=== PATIENT | male | born 1940 | race Caucasian/White ===

== ENCOUNTER 2022-02-21 15:48 | Inpatient (IN) | payer MEDICARE, OTHER ==
[~2022-02-21] VITALS: Ht 170.2 cm; Wt 67.1 kg
--- NOTE | 2022-02-21 16:00 | NUR ---
RECIEved pt 81 years male from from home by tereso awake and alert c/o abdominal pain and black stool diarrhea for 7 days
[2022-02-21] MEDS ORDERED: SERT25TA5 PO (16:14)
[2022-02-21] MEDS ORDERED: ESOM40CA52 PO (16:14)
[2022-02-21] MEDS ORDERED: TAMS-12 PO (16:14)
[2022-02-21] MEDS ORDERED: CELE-85 PO (16:14)
[2022-02-21] MEDS ORDERED: ATOR40TA PO (16:14)
[2022-02-21] MEDS ORDERED: CLOP75TA15 PO (16:14)
[2022-02-21] MEDS ORDERED: EZET10TA15 PO (16:14)
[2022-02-21] MEDS ORDERED: METF-440 PO (16:14)
[2022-02-21] MEDS ORDERED: GABA300C PO (16:14)
[2022-02-21] MEDS ORDERED: FERR324T PO (16:14)
[2022-02-21] MEDS ORDERED: OMEP40CA21 PO (16:14)
[2022-02-21] MEDS ORDERED: TICA90TA PO (16:14)
[2022-02-21] MEDS ORDERED: LISI40TA13 PO (16:14)
[2022-02-21] MEDS ORDERED: PANTOPRAZOLE 40 MG VIAL IV ONE (16:30)
[2022-02-21] MEDS ORDERED: IV NS 0.9% 1,000 ML BAG IV ONE (16:30)
--- NOTE | 2022-02-21 16:30 | NUR ---
BLOOD DROW BY LAB TACH IVF INFUSED AND PATENT SEEN BY DR. PERKINS
[2022-02-21 16:35] LABS: BASOPHILS % (AUTO) 0.5 % (0.0-2.0); EOSINOPHILS % (AUTO) 2.3 % (0.0-6.0); HEMATOCRIT 39 % (39-51); HEMOGLOBIN 12.8 g/dL (13.5-17.5); LYMPHOCYTES # (AUTO) 2.3 K/uL (0.8-4.8); LYMPHOCYTES % (AUTO) 30.9 % (20.0-44.0); MEAN CORPUSCULAR HGB CONC 33 g/dl (31.0-36.0); MEAN CORPUSCULAR VOLUME 91 fL (80-96); MONOCYTES # (AUTO) 0.6 K/uL (0.1-1.30); MONOCYTES % (AUTO) 7.6 % (2.0-12.0); NEUTROPHILS # (AUTO) 4.3 K/uL (1.8-8.9); NEUTROPHILS % (AUTO) 58.7 % (43.0-81.0); PLATELET COUNT (AUTO) 201 K/uL (150-450); RED BLOOD CELL COUNT(AUTO) 4.32 MIL/uL (4.5-6.0); WHITE BLOOD COUNT (AUTO) 7.3 K/uL (4.3-11.0)
[2022-02-21] MEDS ORDERED: PANTOPRAZOLE 40 MG VIAL ONE (16:38)
[2022-02-21 16:46] LABS: OCCULT BLOOD STOOL NEGATIVE (NEGATIVE)
[2022-02-21 16:51] LABS: ALANINE AMINOTRANSFERASE 11 U/L (12-78); ALBUMIN 3.2 g/dL (3.4-5.0); ALKALINE PHOSPHATASE 65 U/L (46-116); ASPARTATE AMINOTRANSFERASE 9 U/L (15-37); BILIRUBIN,DIRECT 0.1 mg/dL (0.0-0.2); BILIRUBIN,TOTAL 0.2 mg/dL (0.2-1.0); CALCIUM, SERUM 8.8 mg/dL (8.5-10.1); CARBON DIOXIDE 26 mmol/L (21-32); CHLORIDE 109 mmol/L (98-107); CREATININE 1.3 mg/dL (0.6-1.3); GLUCOSE 97 mg/dL (74-106); LIPASE 77 U/L (73-393); POTASSIUM 4.3 mmol/L (3.5-5.1); SODIUM SERUM 142 mmol/L (136-145); TOTAL PROTEIN, SERUM 6.5 g/dL (6.4-8.2); UREA NITROGEN, BLOOD 15 mg/dL (7-18)
--- NOTE | 2022-02-21 17:16 | NUR ---
ABDOMIN SOFT NONE TENDER TO TOCH
[2022-02-21] MEDS ORDERED: TICAGRELOR 90 MG TABLET PO SCH (17:30)
[2022-02-21] MEDS: TAMSULOSIN 0.4 MG CAP.SR.24H PO SCH (17:30)
[2022-02-21] MEDS ORDERED: MECL-159 PO (17:46)
--- NOTE | 2022-02-21 18:00 | NUR ---
DANGELO CALDERA SEND TO LAB
--- NOTE | 2022-02-21 18:33 | NUR ---
[facility] CALLED ENGINE HEAD REPAIRER PAGED.
--- NOTE | 2022-02-21 18:45 | NUR ---
ECCHOCARDIO GRAM DONE AT BED SIDE
[2022-02-21] MEDS ORDERED: ACETAMINOPHEN 325 MG TABLET PO PRN (19:00)
[2022-02-21] MEDS ORDERED: ONDANSETRON HCL/PF 4 MG/2 ML VIAL IVP PRN (19:00)
[2022-02-21] MEDS ORDERED: MAG HYDROX/AL HYDROX/SIMETH 30 ML UDC PO PRN (19:00)
[2022-02-21] MEDS ORDERED: DEXTROSE 50%-WATER 50 ML DISP.SYRIN IV PRN (19:00)
[2022-02-21] MEDS ORDERED: *INSULIN REGULAR(HUMULIN R)HUM 100 UNIT/ML VIAL SQ PRN (19:00)
[2022-02-21] MEDS ORDERED: MAGNESIUM HYDROXIDE 30 ML UDC PO PRN (19:00)
[2022-02-21] MEDS ORDERED: Z GUARD REMEDY 4 OZ OINT TP PRN (19:00)
[2022-02-21] MEDS ORDERED: INSULIN REGULAR, HUMAN 100 UNIT/ML 3 ML VIAL SQ PRN (19:00)
--- NOTE | 2022-02-21 19:47 | NUR ---
HAND OFF TO ANDIE LEWIS
[2022-02-21 20:00] VITALS: BP 139/64
--- NOTE | 2022-02-21 21:31 | NUR ---
REPORT GIVEN TO MOSES
--- NOTE | 2022-02-21 21:43 | NUR ---
PT TRANSPORTED TO ROOM 311 ON CLIENT TECHNOLOGIES SPECIALIST PER ACLS
--- NOTE | 2022-02-21 21:45 | NUR ---
RN ADMITTING NOTE PATIENT BEING ADMITTED FROM ER FOR SOB. PATIENT COMPLAINING OF BLACK TARRY STOOLS X 1 WK. NO SOB OR CHEST PAIN UPON ARRIVAL TO THE UNIT. PATIENT STABLE ON RA, 96% 02 SAT. PATIENT ON TELE MONITOR READING 69 BPM WITH PAC. PATIENT STATES HE'S HAD 2 COVID VACCINES. PATIENT IS AMBULATORY AND STEADY. SKIN ISSUES DOCUMENTED AND PHOTOS TAKEN. LFA 20 G, PATENT AND INTACT, FLUSHING WELL. PATIENT ORIENTED TO ROOM, RN, AND FISHERMAN HELPER. BELONGINGS INVENTORIED. VSS AT THIS TIME. SAFETY MEASURES IN PLACE: BED LOCKED AND IN LOWEST POSITION, CALL LIGHT WITHIN REACH, SIDE RAILS UP. WILL MONITOR PATIENT CLOSELY.
[2022-02-21] MEDS: ATORVASTATIN 40 MG TABLET PO SCH (22:37)
[2022-02-21] MEDS: GABAPENTIN 300 MG CAPSULE PO SCH (22:37)
[2022-02-21] MEDS: BLOOD SUGAR DIAGNOSTIC 1 EACH STRIP VI SCH (22:38)
--- NOTE | 2022-02-21 22:38 | NUR ---
BS 95 MG/DL, NO COVERAGE GIVEN. SNACKS PROVIDED. WILL MONITOR FOR HYPO/HYPERGLYCEMIA.
[2022-02-22] VITALS: BP 107/49
[2022-02-22] MEDS ORDERED: BUDE10.2 IH (00:24)
[2022-02-22 04:00] VITALS: BP 131/61
[2022-02-22 06:17] LABS: ALANINE AMINOTRANSFERASE 10 U/L (12-78); ALBUMIN 2.7 g/dL (3.4-5.0); ALKALINE PHOSPHATASE 68 U/L (46-116); ASPARTATE AMINOTRANSFERASE 10 U/L (15-37); BILIRUBIN,TOTAL 0.1 mg/dL (0.2-1.0); CALCIUM, SERUM 8.2 mg/dL (8.5-10.1); CARBON DIOXIDE 22 mmol/L (21-32); CHLORIDE 112 mmol/L (98-107); CREATININE 1.2 mg/dL (0.6-1.3); GLUCOSE 121 mg/dL (74-106); MAGNESIUM 1.7 mg/dL (1.8-2.4); PHOSPHORUS 3.4 mg/dL (2.5-4.9); POTASSIUM 3.9 mmol/L (3.5-5.1); SODIUM SERUM 142 mmol/L (136-145); TOTAL PROTEIN, SERUM 5.8 g/dL (6.4-8.2); UREA NITROGEN, BLOOD 15 mg/dL (7-18)
[2022-02-22 06:36] LABS: BASOPHILS % (AUTO) 0.7 % (0.0-2.0); EOSINOPHILS % (AUTO) 4.3 % (0.0-6.0); HEMATOCRIT 35 % (39-51); HEMOGLOBIN 11.9 g/dL (13.5-17.5); LYMPHOCYTES # (AUTO) 2.2 K/uL (0.8-4.8); LYMPHOCYTES % (AUTO) 33.2 % (20.0-44.0); MEAN CORPUSCULAR HGB CONC 34 g/dl (31.0-36.0); MEAN CORPUSCULAR VOLUME 91 fL (80-96); MONOCYTES # (AUTO) 0.5 K/uL (0.1-1.30); MONOCYTES % (AUTO) 7.9 % (2.0-12.0); NEUTROPHILS # (AUTO) 3.6 K/uL (1.8-8.9); NEUTROPHILS % (AUTO) 53.9 % (43.0-81.0); PLATELET COUNT (AUTO) 200 K/uL (150-450); RED BLOOD CELL COUNT(AUTO) 3.91 MIL/uL (4.5-6.0); WHITE BLOOD COUNT (AUTO) 6.8 K/uL (4.3-11.0)
[2022-02-22] MEDS: BLOOD SUGAR DIAGNOSTIC 1 EACH STRIP VI SCH ×4 (06:42→22:30)
--- NOTE | 2022-02-22 07:20 | NUR ---
RN CLOSING NOTE PATIENT IN BED, EYES CLOSED. EASILY AWAKENED. PATIENT IS A/O X 4, ABLE TO MAKE NEEDS KNOWN. PATIENT ON RA, NO SOB AND NO RESPIRATORY DISTRESS NOTED. PATIENT DID NOT COMPLAIN OF CHEST PAIN DURING THE SHIFT. PATIENT'S IV ACCESS PATENT AND INTACT. ALL NEEDS MET AND ATTENDED. ALL ORDERS CARRIED OUT. SAFETY MEASURES IN PLACE: BED LOCKED AND IN LOWEST POSITION, CALL LIGHT WITHIN REACH, SIDE RAILS UP. ENDORSED TO DAY SHIFT NURSE FOR RANDY. Addendum: 02/22/22 at 0725 by FERMIN GUEVARA RN BS 121 MG/DL. NO COVERAGE GIVEN.
--- NOTE | 2022-02-22 07:41 | NUR ---
RN OPENING NOTE- PATIENT IN BED, ASLEEP THOUGH EASILY AWAKENED. PATIENT IS A/O X 4, ABLE TO MAKE NEEDS KNOWN. PATIENT ON RA, NO SOB AND NO RESPIRATORY DISTRESS NOTED. PATIENT'S IV ACCESS LFA #20. ALL NEEDS MET AND ATTENDED. ALL ORDERS CARRIED OUT. SAFETY MEASURES IN PLACE: BED LOCKED AND IN LOWEST POSITION, CALL LIGHT WITHIN REACH, SIDE RAILS UP. MONITOR / ASSIST
[2022-02-22 07:57] VITALS: BP 120/59
[2022-02-22] MEDS ORDERED: CLOPIDOGREL BISULFATE 75 MG TABLET PO SCH (09:00)
[2022-02-22] MEDS ORDERED: Medication Not On Formulary EA (Esomeprazole Magnesium 40 MG) PO SCH (09:00)
[2022-02-22 09:03] LABS: BASOPHILS # (AUTO) 0.1 K/uL (0.0-0.2); BASOPHILS % (AUTO) 0.9 % (0.0-2.0); EOSINOPHILS % (AUTO) 4.2 % (0.0-6.0); HEMATOCRIT 38 % (39-51); HEMOGLOBIN 12.5 g/dL (13.5-17.5); LYMPHOCYTES # (AUTO) 2.7 K/uL (0.8-4.8); LYMPHOCYTES % (AUTO) 36.4 % (20.0-44.0); MEAN CORPUSCULAR HGB CONC 33 g/dl (31.0-36.0); MEAN CORPUSCULAR VOLUME 90 fL (80-96); MONOCYTES # (AUTO) 0.6 K/uL (0.1-1.30); MONOCYTES % (AUTO) 8.3 % (2.0-12.0); NEUTROPHILS # (AUTO) 3.7 K/uL (1.8-8.9); NEUTROPHILS % (AUTO) 50.2 % (43.0-81.0); PLATELET COUNT (AUTO) 209 K/uL (150-450); WHITE BLOOD COUNT (AUTO) 7.3 K/uL (4.3-11.0)
[2022-02-22] MEDS: EZETIMIBE 10 MG TABLET PO SCH (09:10)
[2022-02-22] MEDS: TAMSULOSIN 0.4 MG CAP.SR.24H PO SCH ×2 (09:10→16:46)
[2022-02-22] MEDS: LISINOPRIL (20MG) 20 MG TABLET PO SCH (09:10)
[2022-02-22] MEDS: SERTRALINE HCL 25 MG TABLET PO SCH (09:10)
[2022-02-22] MEDS: METFORMIN 500 MG TABLET PO SCH (09:10)
[2022-02-22] MEDS: FERROUS SULFATE (325 MG) 325 MG/TAB TABLET PO SCH (09:10)
[2022-02-22] MEDS: PANTOPRAZOLE 40 MG TABLET.DR PO SCH (09:11)
[2022-02-22 09:36] LABS: ALANINE AMINOTRANSFERASE 10 U/L (12-78); ALKALINE PHOSPHATASE 68 U/L (46-116); ASPARTATE AMINOTRANSFERASE 12 U/L (15-37); BILIRUBIN,TOTAL 0.1 mg/dL (0.2-1.0); CALCIUM, SERUM 8.2 mg/dL (8.5-10.1); CARBON DIOXIDE 21 mmol/L (21-32); CHLORIDE 111 mmol/L (98-107); CREATININE 1.2 mg/dL (0.6-1.3); GLUCOSE 115 mg/dL (74-106); MAGNESIUM 1.8 mg/dL (1.8-2.4); PHOSPHORUS 3.3 mg/dL (2.5-4.9); POTASSIUM 4.1 mmol/L (3.5-5.1); SODIUM SERUM 143 mmol/L (136-145); TOTAL PROTEIN, SERUM 6.2 g/dL (6.4-8.2)
[2022-02-22] MEDS: CLOPIDOGREL BISULFATE 75 MG TABLET PO SCH (09:42)
[2022-02-22 09:46] LABS: UREA NITROGEN, BLOOD 15 mg/dL (7-18)
[2022-02-22] MEDS: Magnesium 1GM/D5W 100ML PREMIX 100 ML IV SCH ×2 (10:21→11:20)
[2022-02-22] MEDS ORDERED: ANESTHESIA TRAY IN PYXIS 1 EA TRAY MC ONE (13:34)
[2022-02-22 15:55] VITALS: BP 106/57
--- NOTE | 2022-02-22 18:53 | NUR ---
RN CLOSING NOTE- PATIENT IN BED. PATIENT IS A/O X 4, ABLE TO MAKE NEEDS KNOWN. PATIENT ON RA, NO SOB AND NO RESPIRATORY DISTRESS NOTED. PATIENT'S IV ACCESS LFA #20. ALL NEEDS MET AND ATTENDED. FOR ENDOSCOPY TOMORROW. NPO AFTER MN, CONSENTS COMPLETED. ALL ORDERS CARRIED OUT. SAFETY MEASURES IN PLACE: BED LOCKED AND IN LOWEST POSITION, CALL LIGHT WITHIN REACH, SIDE RAILS UP. MONITOR / ASSIST
--- NOTE | 2022-02-22 19:20 | NUR ---
COMPUTING SYSTEMS MECHANIC OPENING NOTE RECEIVED PATIENT IN BED; AWAKE, ALERT AND ORIENTED X4. BREATHING EVENLY AND NONLABORED. ON ROOM AIR, TOLERATING WELL. NOT IN ANY FORM OF RESPIRATORY DISTRESS. ON TELEMETRY MONITORING WITH READING OF SR HR-74BPM. WITH IV ACCESS ON LEFT FOREARM; PATENT, INTACT AND FLUSHES WELL. ABLE TO MAKE NEEDS KNOWN. SAFETY MEASURES IMPLEMENTED: CALL LIGHT AND TABLE WITHIN EASY REACH, SIDE RAILS UP X2, BED IN LOWEST LOCKED POSITION. WILL CONTINUE PLAN OF CARE
[2022-02-22 19:56] VITALS: BP 108/61
[2022-02-22 20:00] VITALS: BP 108/61
--- NOTE | 2022-02-22 22:30 | NUR ---
HYDROLOGICAL TECHNICAL OFFICER NOTES BLOOD SUGAR CHECKED WITH RESULT OF 126 MG/DL; NO INSULIN COVERAGE GIVEN.
[2022-02-22] MEDS: GABAPENTIN 300 MG CAPSULE PO SCH (22:52)
[2022-02-22] MEDS: ATORVASTATIN 40 MG TABLET PO SCH (22:52)
[2022-02-23] VITALS: BP 106/64
[2022-02-23 00:05] VITALS: BP 106/64
[2022-02-23 03:55] VITALS: BP 118/46
[2022-02-23 04:00] VITALS: BP 118/46
[2022-02-23] MEDS: BLOOD SUGAR DIAGNOSTIC 1 EACH STRIP VI SCH ×2 (06:17→11:49)
[2022-02-23 06:36] LABS: BASOPHILS # (AUTO) 0.1 K/uL (0.0-0.2); BASOPHILS % (AUTO) 0.7 % (0.0-2.0); EOSINOPHILS % (AUTO) 4.2 % (0.0-6.0); HEMATOCRIT 38 % (39-51); HEMOGLOBIN 12.5 g/dL (13.5-17.5); LYMPHOCYTES # (AUTO) 2.4 K/uL (0.8-4.8); LYMPHOCYTES % (AUTO) 29.9 % (20.0-44.0); MEAN CORPUSCULAR HGB CONC 33 g/dl (31.0-36.0); MEAN CORPUSCULAR VOLUME 91 fL (80-96); MONOCYTES # (AUTO) 0.6 K/uL (0.1-1.30); MONOCYTES % (AUTO) 7.8 % (2.0-12.0); NEUTROPHILS # (AUTO) 4.7 K/uL (1.8-8.9); NEUTROPHILS % (AUTO) 57.4 % (43.0-81.0); PLATELET COUNT (AUTO) 192 K/uL (150-450); RED BLOOD CELL COUNT(AUTO) 4.18 MIL/uL (4.5-6.0); WHITE BLOOD COUNT (AUTO) 8.1 K/uL (4.3-11.0)
--- NOTE | 2022-02-23 06:59 | NUR ---
DIRECTOR OF ASSESSMENT CLOSING NOTES PATIENT IN BED AWAKE, ALERT AND ORIENTED X4. BREATHING IS EVEN AND NONLABORED. ON ROOM AIR, WELL TOLERATED. ON TELEMETRY MONITORING WITH READING OF SR HR-61 BPM WITH PAC. ABLE TO MAKE NEEDS KNOWN. IN NO ACUTE DISTRESS NOTED. DENIES ANY PAIN OR DISCOMFORT OF THIS TIME. SAFETY MEASURES IN PLACE. ENDORSED TO MORNING SHIFT NURSE FOR CONTINUITY OF CARE.
[2022-02-23 07:07] LABS: ALANINE AMINOTRANSFERASE 11 U/L (12-78); ALKALINE PHOSPHATASE 65 U/L (46-116); ASPARTATE AMINOTRANSFERASE 8 U/L (15-37); BILIRUBIN,TOTAL 0.2 mg/dL (0.2-1.0); CALCIUM, SERUM 8.8 mg/dL (8.5-10.1); CARBON DIOXIDE 24 mmol/L (21-32); CHLORIDE 109 mmol/L (98-107); CREATININE 1.3 mg/dL (0.6-1.3); GLUCOSE 87 mg/dL (74-106); MAGNESIUM 1.9 mg/dL (1.8-2.4); PHOSPHORUS 4.5 mg/dL (2.5-4.9); POTASSIUM 4.4 mmol/L (3.5-5.1); SODIUM SERUM 141 mmol/L (136-145); TOTAL PROTEIN, SERUM 6.3 g/dL (6.4-8.2); UREA NITROGEN, BLOOD 16 mg/dL (7-18)
--- NOTE | 2022-02-23 07:30 | NUR ---
NURSING INFORMATICS SPECIALIST OPENING NOTES RECEIVED PATIENT ON BED AWAKE AND A/O X4.ON ROOM AIR TOLERATING WELL. NO SOB NOTED. NOT IN DISTRESS. WITH NO COMPLAINTS OF PAIN OR DISCOMFORT AT THIS TIME. WITH IV ACCESS AT LEFT FOREARM G20 SALINE LOCKED, PATENT AND INTACT. ON TELE MONITOR CURRENTLY READING SINUS RHYTHM WITH PAC AT 63BPM. ON NPO STATUS AWAITING FOR EGD PROCEDURE WITH DR. BENSON. SAFETY MEASURES IN PLACED. CALL LIGHT WITHIN REACH. BED ON LOWEST LOCKED POSITION, SIDE RAILS UP X2. WILL CONTINUE TO MONITOR.
[2022-02-23 08:00] VITALS: BP 127/63
[2022-02-23 09:00] VITALS: BP 127/63
[2022-02-23] MEDS: TAMSULOSIN 0.4 MG CAP.SR.24H PO SCH (09:00)
[2022-02-23] MEDS: FERROUS SULFATE (325 MG) 325 MG/TAB TABLET PO SCH (09:00)
[2022-02-23] MEDS: CLOPIDOGREL BISULFATE 75 MG TABLET PO SCH (09:00)
[2022-02-23] MEDS: PANTOPRAZOLE 40 MG TABLET.DR PO SCH (09:00)
[2022-02-23] MEDS: SERTRALINE HCL 25 MG TABLET PO SCH (09:00)
[2022-02-23] MEDS: EZETIMIBE 10 MG TABLET PO SCH (09:00)
[2022-02-23] MEDS: METFORMIN 500 MG TABLET PO SCH (09:00)
[2022-02-23] MEDS: LISINOPRIL (20MG) 20 MG TABLET PO SCH (09:00)
--- NOTE | 2022-02-23 15:10 | NUR ---
DIELECTRIC TESTING MACHINE OPERATOR NOTES PATIENT WAS SEEN BY DR. KWON AND PER EGD RESULT IS NEGATIVE, PATIENT HAS BEEN ORDERED FOR DISCHARGE TO HOME. DISCHARGE INSTRUCTION AND EDUCATION PROVIDED TO THE PATIENT AND EXPLAINED MEDICATIONS AND PRESCRIPTIONS. PATIENT VERBALIZED UNDERSTANDING. DISCHARGE FORM AND BELONGINGS LIST FORM SIGNED BY PATIENT. ALL BELONGINGS ACCOUNTED FOR. NAME WRIST BAND AND IV LINE REMOVED. ACCOMPANIED PATIENT TO THE LOBBY VIA WHEELCHAIR IN STABLE CONDITION AND WAS PICKED UP BY SISTER VIA PRIVATE CAR. MD AND CHARGE NURSE ARE AWARE OF THE DISCHARGE.
== END 2022-02-23 15:15 | disposition home or self-care (01) | DRG 303 ==
LOC: ER 15:50 → TELE 19:31 → UNDOADMIN 19:31 → TELE 21:24 → MED 02-23 10:44
PROVIDERS: ADMIT Internal Medicine; ATTEND Internal Medicine
PROC: 0DJ08ZZ Inspection of Upper Intestinal Tract, Via Natural or Artificial Opening Endoscopic (ICD-10-PCS; principal; 2022-02-23)
DX: I25.119 Atherosclerotic heart disease of native coronary artery with unspecified angina pectoris (principal); I10 Essential (primary) hypertension; I25.2 Old myocardial infarction; E78.00 Pure hypercholesterolemia, unspecified; Z88.0 Allergy status to penicillin; Z95.5 Presence of coronary angioplasty implant and graft; Z20.822 Contact with and (suspected) exposure to COVID-19; Z79.02 Long term (current) use of antithrombotics/antiplatelets; Z79.84 Long term (current) use of oral hypoglycemic drugs; Z79.899 Other long term (current) drug therapy; K21.9 Gastro-esophageal reflux disease without esophagitis; E78.5 Hyperlipidemia, unspecified; E83.42 Hypomagnesemia; N40.0 Benign prostatic hyperplasia without lower urinary tract symptoms; E11.40 Type 2 diabetes mellitus with diabetic neuropathy, unspecified; D50.9 Iron deficiency anemia, unspecified; K29.70 Gastritis, unspecified, without bleeding; Z87.11 Personal history of peptic ulcer disease
CPT/HCPCS: 36415; 71045-TC; 80048-TC; 80053-TC; 80076-TC; 82272-TC; 82962-TC; 83690-TC; 83735-TC; 84100-TC; 84484-TC; 85025-TC; 85730-TC; 86850-TC; 87081-TC; 93307-TC; C9113; C9803; G0378; J1815; J3475; J7030

== ENCOUNTER 2023-09-13 19:02 | Emergency (ER) | payer MEDICARE, OTHER ==
[~2023-09-13] VITALS: Ht 170.2 cm; Wt 61.2 kg
[~2023-09-13 19:02] MED LIST: ATOR40TA PO; BUDE10.2 IH; CELE-85 PO; CLOP75TA15 PO; ESOM40CA52 PO; EZET10TA15 PO; FERR324T PO; GABA300C PO; LISI40TA13 PO; MECL-159 PO; METF-440 PO; OMEP40CA21 PO; SERT25TA5 PO; TAMS-12 PO; TICA90TA PO
[2023-09-13] MEDS ORDERED: ACETAMINOPHEN ES 500 MG TABLET PO ONE (20:00)
[2023-09-13] MEDS ORDERED: LIDOCAINE 5% (PATCH) 1 EA PATCH TP SCH (20:00)
[2023-09-13] MEDS ORDERED: CYCLOBENZAPRINE 10 MG TABLET PO ONE (20:00)
[2023-09-13] MEDS ORDERED: IBUPROFEN 600 MG TABLET PO ONE (20:00)
[2023-09-13] MEDS ORDERED: IBUPROFEN 600 MG TABLET ONE (20:16)
[2023-09-13] MEDS ORDERED: CYCLOBENZAPRINE 10 MG TABLET ONE (20:16)
[2023-09-13] MEDS ORDERED: ACETAMINOPHEN ES 500 MG TABLET ONE (20:16)
[2023-09-13] MEDS ORDERED: LIDOCAINE 5% (PATCH) 1 EA PATCH TP ONE (20:16)
[2023-09-13] MEDS ORDERED: HYDROCODONE/APAP 5/325MG TABLET PO ONE (21:30)
[2023-09-13] MEDS ORDERED: HYDROCODONE/APAP 5/325MG TABLET ONE (21:31)
[2023-09-13] MEDS ORDERED: ACET-2605 PO (21:51)
[2023-09-13 21:58] VITALS: BP 154/80; TEMP 98.7; O2SAT 95
== END 2023-09-13 21:59 | disposition home or self-care (01) ==
LOC: ER 19:20
DX: M54.50 Low back pain, unspecified (principal); E78.00 Pure hypercholesterolemia, unspecified; Z98.890 Other specified postprocedural states; Z79.899 Other long term (current) drug therapy; Z60.2 Problems related to living alone; Z88.1 Allergy status to other antibiotic agents
CPT/HCPCS: 72170-TC

== ENCOUNTER 2023-09-17 10:46 | Inpatient (IN) | payer MEDICARE, OTHER ==
[~2023-09-17] VITALS: Ht 172.7 cm; Wt 59.0 kg
[~2023-09-17 10:46] MED LIST changes: +ACET-2605 PO
[2023-09-17 11:05] VITALS: O2SAT 98
[2023-09-17] MEDS ORDERED: MORPHINE SULFATE INJ 2 MG/ML DISP.SYRIN ONE ×2 (11:15→12:13)
[2023-09-17 11:26] LABS: APPEARANCE,URINE CLEAR (CLEAR); BILIRUBIN,URINE 1+ (NEGATIVE); BLOOD, URINE 1+ Ery/uL (NEGATIVE); COLOR,URINE YELLOW (YELLOW); KETONES,URINE 2+ mg/dL (NEGATIVE); LEUKOCYTE ESTERASE ,URINE NEGATIVE (NEGATIVE); NITRITE, URINE NEGATIVE (NEGATIVE); PH,URINE 5.5 (5.0-8.0); PROTEIN,URINE NEGATIVE (NEGATIVE); UGLUCOSE NEGATIVE (NEGATIVE)
[2023-09-17 11:28] LABS: BASOPHILS # (AUTO) 0.1 K/uL (0.0-0.2); BASOPHILS % (AUTO) 0.7 % (0.0-2.0); EOSINOPHILS # (AUTO) 0.2 K/uL (0.0-0.7); EOSINOPHILS % (AUTO) 2.2 % (0.0-6.0); HEMATOCRIT 34 % (39-51); HEMOGLOBIN 10.9 g/dL (13.5-17.5); LYMPHOCYTES # (AUTO) 1.8 K/uL (0.8-4.8); LYMPHOCYTES % (AUTO) 18.3 % (20.0-44.0); MEAN CORPUSCULAR HEMOGLOBIN 28 PG (26.0-33.0); MEAN CORPUSCULAR HGB CONC 33 g/dl (31.0-36.0); MEAN CORPUSCULAR VOLUME 87 fL (80-96); MONOCYTES # (AUTO) 0.7 K/uL (0.1-1.30); MONOCYTES % (AUTO) 7.4 % (2.0-12.0); NEUTROPHILS # (AUTO) 6.9 K/uL (1.8-8.9); NEUTROPHILS % (AUTO) 71.4 % (43.0-81.0); PLATELET COUNT (AUTO) 288 K/uL (150-450); RED BLOOD CELL COUNT(AUTO) 3.86 MIL/uL (4.5-6.0); RED CELL DISTRIBUTION WIDTH 15.6 % (11.5-15.0); WHITE BLOOD COUNT (AUTO) 9.7 K/uL (4.3-11.0)
[2023-09-17] MEDS ORDERED: MORPHINE SULFATE INJ 2 MG/ML DISP.SYRIN IV ONE ×2 (11:30→12:30)
[2023-09-17 11:41] LABS: CALCIUM, SERUM 8.9 mg/dL (8.5-10.1); CREATININE 1.1 mg/dL (0.6-1.3); POTASSIUM 3.7 mmol/L (3.5-5.1)
[2023-09-17 11:48] LABS: ALBUMIN 2.9 g/dL (3.4-5.0); BILIRUBIN,DIRECT 0.3 mg/dL (0.0-0.2); BILIRUBIN,TOTAL 0.8 mg/dL (0.2-1.0); TOTAL PROTEIN, SERUM 7.5 g/dL (6.4-8.2)
[2023-09-17] MEDS ORDERED: NA PHOS,M-B/NA PHOS,DI-BA 1 EA ENEMA RC ONE ×2 (12:12→12:30)
[2023-09-17 12:16] LABS: INR 1.09 (0.91-1.10); PARTIAL THROMBOPLASTIN TIME 31.7 SEC (24.3-34.3); PROTHROMBIN TIME 11.5 SECS (9.2-11.1)
[2023-09-17 12:36] LABS: MAGNESIUM 1.9 mg/dL (1.8-2.4)
[2023-09-17 12:49] LABS: LACTIC ACID 3.4 mmol/L (0.4-2.0)
[2023-09-17] MEDS ORDERED: CEFEPIME 1 GM in IV D5W 50 ML IV ONE (13:00)
[2023-09-17] MEDS ORDERED: VANCOMYCIN 1 GM in IV D5W 250 ML IV ONE (13:00)
[2023-09-17] MEDS ORDERED: VANCOMYCIN 1 GM /D5W 250 ML PB IV ONE (13:16)
[2023-09-17] MEDS ORDERED: Magnesium 1GM/D5W 100ML PREMIX 100 ML IV ONE (13:16)
[2023-09-17 13:19] LABS: ADD URINE CULTURE NO; BACTERIA,URINE Few /HPF (None Seen); WBC,URINE NONE SEEN /HPF (0-3)
[2023-09-17] MEDS ORDERED: IV NS 0.9% 1,000 ML IV PRN (13:30)
[2023-09-17] MEDS ORDERED: INSULIN REGULAR, HUMAN 100 UNIT/ML 3 ML VIAL SQ PRN ×2 (13:30→19:00)
[2023-09-17] MEDS ORDERED: IV NS 0.9% 1,000 ML BAG IV ONE (13:30)
[2023-09-17] MEDS ORDERED: ONDANSETRON HCL/PF 4 MG/2 ML VIAL IVP PRN (13:30)
[2023-09-17] MEDS ORDERED: ACETAMINOPHEN 325 MG TABLET PO PRN (13:30)
[2023-09-17] MEDS ORDERED: DEXTROSE 50%-WATER 50 ML DISP.SYRIN IV PRN ×2 (13:30→19:00)
[2023-09-17] MEDS ORDERED: hydrALAZINE HCL IV 20 MG VIAL IV PRN (13:30)
[2023-09-17] MEDS ORDERED: ASPI-1169 PO (14:02)
[2023-09-17] MEDS ORDERED: DOCU100T2 PO (14:02)
[2023-09-17] MEDS ORDERED: PLEC3TAB PO (14:02)
[2023-09-17] MEDS ORDERED: ALBU18HF2 IH (14:02)
[2023-09-17] MEDS ORDERED: PROP20TA7 PO (14:02)
[2023-09-17] MEDS ORDERED: Magnesium 1GM/D5W 100ML PREMIX 100 ML IV SCH (15:00)
[2023-09-17] MEDS ORDERED: DIATR MEGLU/DIATRIZOATE SODIUM 120 ML BOTTLE (GASTROGRAPHIN) ONE (15:19)
[2023-09-17] MEDS ORDERED: BLOOD SUGAR DIAGNOSTIC 1 EACH STRIP IN SCH (17:30)
[2023-09-17] MEDS: MORPHINE SULFATE INJ 2 MG/ML DISP.SYRIN IV PRN (18:52)
[2023-09-17] MEDS ORDERED: MECLIZINE HCL 25 MG TABLET PO PRN (19:00)
[2023-09-17 20:00] VITALS: BP 150/67; TEMP 98.6; O2SAT 97
[2023-09-17] MEDS: BLOOD SUGAR DIAGNOSTIC 1 EACH STRIP IN SCH (21:38)
[2023-09-17] MEDS ORDERED: GABAPENTIN 300 MG CAPSULE PO SCH (22:00)
[2023-09-17] MEDS ORDERED: ATORVASTATIN 40 MG TABLET PO SCH (22:00)
[2023-09-17] MEDS: HEPARIN SODIUM, PORCINE 5000 UNITS/1 ML VIAL SQ SCH (23:34)
[2023-09-18] MEDS: MORPHINE SULFATE INJ 2 MG/ML DISP.SYRIN IV PRN ×2 (02:39→11:34)
[2023-09-18 06:37] LABS: BASOPHILS # (AUTO) 0.1 K/uL (0.0-0.2); BASOPHILS % (AUTO) 0.7 % (0.0-2.0); EOSINOPHILS # (AUTO) 0.2 K/uL (0.0-0.7); EOSINOPHILS % (AUTO) 2.6 % (0.0-6.0); HEMATOCRIT 28 % (39-51); HEMOGLOBIN 9.2 g/dL (13.5-17.5); LYMPHOCYTES # (AUTO) 1.7 K/uL (0.8-4.8); LYMPHOCYTES % (AUTO) 20.9 % (20.0-44.0); MEAN CORPUSCULAR HEMOGLOBIN 28 PG (26.0-33.0); MEAN CORPUSCULAR HGB CONC 33 g/dl (31.0-36.0); MEAN CORPUSCULAR VOLUME 86 fL (80-96); MONOCYTES # (AUTO) 0.7 K/uL (0.1-1.30); MONOCYTES % (AUTO) 8.5 % (2.0-12.0); NEUTROPHILS # (AUTO) 5.6 K/uL (1.8-8.9); NEUTROPHILS % (AUTO) 67.3 % (43.0-81.0); PLATELET COUNT (AUTO) 272 K/uL (150-450); RED BLOOD CELL COUNT(AUTO) 3.27 MIL/uL (4.5-6.0); RED CELL DISTRIBUTION WIDTH 15.6 % (11.5-15.0); WHITE BLOOD COUNT (AUTO) 8.3 K/uL (4.3-11.0)
[2023-09-18] MEDS: BLOOD SUGAR DIAGNOSTIC 1 EACH STRIP IN SCH ×3 (06:51→17:18)
[2023-09-18 06:54] LABS: ALBUMIN 2.3 g/dL (3.4-5.0); BILIRUBIN,TOTAL 0.5 mg/dL (0.2-1.0); CALCIUM, SERUM 8.2 mg/dL (8.5-10.1); CREATININE 0.8 mg/dL (0.6-1.3); PHOSPHORUS 3.1 mg/dL (2.5-4.9); POTASSIUM 3.8 mmol/L (3.5-5.1)
[2023-09-18 07:00] VITALS: BP 154/86; TEMP 97.8; O2SAT 96
[2023-09-18] MEDS ORDERED: ASPIRIN 81 MG TAB.CHEW PO SCH (09:00)
[2023-09-18] MEDS ORDERED: EZETIMIBE 10 MG TABLET PO SCH (09:00)
[2023-09-18] MEDS ORDERED: SERTRALINE HCL 25 MG TABLET PO SCH (09:00)
[2023-09-18] MEDS ORDERED: FERROUS SULFATE (325 MG) 325 MG/TAB TABLET PO SCH (09:00)
[2023-09-18] MEDS ORDERED: Medication Not On Formulary EA (Plecanatide (Trulance) 3 MG) PO SCH (09:00)
[2023-09-18] MEDS ORDERED: LISINOPRIL (20MG) 20 MG TABLET PO SCH (09:00)
[2023-09-18] MEDS: PROPRANOLOL HCL 10 MG TABLET PO SCH ×2 (09:14→17:25)
[2023-09-18] MEDS: DOCUSATE SODIUM 100 MG CAPSULE PO SCH ×2 (09:14→17:24)
[2023-09-18] MEDS: TAMSULOSIN 0.4 MG CAP.SR.24H PO SCH ×2 (09:16→17:24)
[2023-09-18] MEDS: HEPARIN SODIUM, PORCINE 5000 UNITS/1 ML VIAL SQ SCH (09:25)
[2023-09-18 16:00] VITALS: BP 124/62; TEMP 97.9; O2SAT 95
[2023-09-18 17:25] VITALS: BP 124/62
== END 2023-09-18 19:00 | disposition home or self-care (01) | DRG 392 ==
LOC: ER 10:49 → MED 13:52
PROVIDERS: ADMIT Internal Medicine; ATTEND Internal Medicine
DX: K59.00 Constipation, unspecified (principal); E44.1 Mild protein-calorie malnutrition; E87.20 Acidosis, unspecified; Z68.1 Body mass index [BMI] 19.9 or less, adult; N40.0 Benign prostatic hyperplasia without lower urinary tract symptoms; I71.43 Infrarenal abdominal aortic aneurysm, without rupture; D64.9 Anemia, unspecified; E11.9 Type 2 diabetes mellitus without complications; E88.09 Other disorders of plasma-protein metabolism, not elsewhere classified; I10 Essential (primary) hypertension; Z79.899 Other long term (current) drug therapy; Z79.84 Long term (current) use of oral hypoglycemic drugs; R31.9 Hematuria, unspecified; E78.5 Hyperlipidemia, unspecified; Z79.891 Long term (current) use of opiate analgesic; Z20.822 Contact with and (suspected) exposure to COVID-19
CPT/HCPCS: 36415; 71045-TC; 74250-TC; 80048-TC; 80053-TC; 80076-TC; 81001; 82962-TC; 83605-TC; 83690-TC; 83735-TC; 84100-TC; 85025-TC; 85730-TC; 87040-TC; A4223; G0378; J0692; J1644; J1815; J2270; J3370; J3475; J7030; J7060; Q9963